=== PATIENT | male | born 1955 | race Caucasian/White ===

== ENCOUNTER 2017-01-06 15:25 | Inpatient (IN) | payer MEDICARE ==
[~2017-01-06] VITALS: Ht 188 cm; Wt 110.9 kg
[~2017-01-06 15:25] MED LIST: ASPIRIN E.C. 8181 MG PO; EXCEDRIN TENSION HA PO; HYZAAR 12.5 MG-1 TAB PO; LEXAPRO20 MG PO; PRILOSEC40 MG PO; REGLAN 10MG10 MG/TAB PO; TOPROL XL100 MG PO; VICODIN 5/5001 UDTAB PO; ZOCOR40 MG PO
[2017-02-20] VITALS (9 sets, daily range): BP systolic 92–163; BP diastolic 52–73; PULSE 65–74; TEMP 97.8–98.2
[2017-02-20] MEDS ORDERED: ZANAFLEX 4MG TAB4 MG PO (10:18)
[2017-02-20] MEDS ORDERED: HYSINGLA40 PO (10:19)
[2017-02-20] MEDS ORDERED: DESYREL 100MG100 MG PO (10:19)
[2017-02-20] MEDS ORDERED: NORCO 325 MG-101 TAB PO (10:20)
[2017-02-20] MEDS ORDERED: NEURONTIN300 MG/CAP PO (10:20)
[2017-02-20] MEDS ORDERED: GLUCOTROL 5M5 MG/TAB PO (10:21)
[2017-02-20] MEDS ORDERED: LEVEMIR FLEX100 U/ML SQ (10:21)
[2017-02-20] MEDS ORDERED: TOPROL XL200 MG PO (10:22)
[2017-02-20] MEDS ORDERED: LIPITOR 40MG TA40 MG PO (10:22)
[2017-02-20] MEDS ORDERED: LOTENSIN HCT 101 TAB PO (10:23)
[2017-02-20] MEDS ORDERED: PLAVIX 75MG TAB75 MG PO (10:40)
--- NOTE | 2017-02-20 10:57 | NUR ---
Pt arrived via wheelchair due to intolerance to walk long distances with personal cane. , Gi, with pt today. Pt is A&O. Did have some difficulty with giving information on current medication he takes. Pt has a bit of a slur with speech but reports he doesnt like to wear his upper and lower dentures and currently does not have them in. VSS-documented. Assessment completed and documented. BG obtained-171. IVF infusing to 18g in right forearm. Left shoulder scrubbed per orders. Glasses in place at this time. and son at bedside. Pt verbalized understanding of surgery and consent obtained. Side rails up. Call light in reach.
--- NOTE | 2017-02-20 14:20 | NUR ---
PATIENT ADMITED INTO ROOM 350 POST OP. PATIENT IS VERY DROWSY POST OP AND CAN'T STAY AWAKE. NOTED LOWER B/P IN THE 90'S SYSTOLIC WITH RESP AT 10-12. ALL OTHER VSS. PATIENT APPEARS TO BE COMFORTABLE. PATIENT HAS HX OF CHRONIC PAIN, MULTIPLE BACK SURGERIES, RECENTLY QUITE SMOKING AND DRINKING REPORTED BY HIM. PATIENT IS A RETIRED CARDIOLOGY NURSE. LTS DRESSING IS CD&I WITH FOAM DRESSING. ABDUCTOR SLING INPLACE TO LUE WITH ICE PACK. SCD'S TO BLE. POSITIVE RADIAL PULSES. PATIENT ON CONTACT FOR HX OF MRSA. NO C/O N/V. IV FLUIDS INFUSING INTO RIGHT FORARM IV VIA PUMP. LIQUIDS AT BEDSIDE. BS IN PACU WAS 129. PATIENT HAS NOT VOIDED POST OP YET AND DENIES NEED AT THIS TIME. HEAD TO TOE ASSESSMENT COMPLETE. FAMILY AT BEDSIDE. CALL LIGHT IN REACH.
--- NOTE | 2017-02-20 17:45 | NUR ---
HUNG FIRST POST OP DOSE OF IV ABX. PATIENT SLEEPING SOUNDLY. VSS. ASLEEP AT BEDSIDE. CALL LIGHT IN REACH.
--- NOTE | 2017-02-20 22:30 | NUR ---
RESUMED CARE OF PATIENT. STILL SLIGHTLY DROWSY BUT MORE AWAKE THAN EARLIER. SCHEDULED TORADOL GIVEN FOR PAIN. PATIENT STATED HE WANTED DILAUDID. TOLD HIM NONE WAS ORDERED AND GAVE NORCO INSTEAD. LEFT SHOULDER HAS ABDUCTOR SLING IN PLACE WITH ICE. ISOLATION PRECAUTIONS FOR HISTORY OF MRSA. 35 UNITS OF INSULIN LEVEMIR WAS GIVEN BEFORE BED, BLOOD SUGAR WAS 163. PATIENT HAS VOIDED, USING URINAL. CALL LIGHT WITHIN REACH. WILL CONTINUE TO MONITOR.
--- NOTE | 2017-02-20 23:17 | NUR ---
REPORT GIVEN TO QAMAR MEDINA, WHO WILL BE TAKING OVER PATIENT'S CARE AT THIS TIME.
[2017-02-21 00:11] VITALS: BP 139/70; PULSE 83; TEMP 98.5
--- NOTE | 2017-02-21 00:30 | NUR ---
RECEIVED REPORT FROM MICHI FOOTE.
--- NOTE | 2017-02-21 01:04 | NUR ---
PT ANGRY. PT RELATED HE ONLY AGREED TO SURGERY IF DR WOULD GIVE HIM DILAUDID. MENTIONS DILAUDID SEVERAL TIMES. PAIN UNRELIEVED WITH NORCO. GAVE MORPHINE 4MG IV. AND ICE PACK. PT SITTING UP IN BED. STATES I HATE ICE PACKS. WANTS TORODOL NOW FOR INFLAMMATION. NOT DUE UNTILL 3AM. AT BEDSIDE. CALL LIGHT IN REACH.
[2017-02-21 04:42] LABS: HEMATOCRIT 34.6 % (42.0-52.0); HEMOGLOBIN 10.7 g/dl (13.5-18.0)
[2017-02-21 05:40] VITALS: BP 96/47; PULSE 74; TEMP 98.4
--- NOTE | 2017-02-21 07:00 | NUR ---
Report received from QAMAR Gray. PT in bed resting, sitting at side of bed, ordering breakfast adn anticipating dishcarge shortly. Will continue to monitor.
--- NOTE | 2017-02-21 08:30 | NUR ---
Discharge teaching completed at this time. Pt received scripts, f/u appointmetn. Discharge packet discussed and answered all questions. Pt received 6 airstrips to put on after 02/28 when aquacel removed. Sling in placed, re-educated on need to keep sling in place at all times. Pt left wtih all belongings, escorted out via wheelchair with surgical staff. to drive home. Criteria met.
== END 2017-02-21 08:50 | disposition home or self-care (01) | DRG 483 ==
LOC: JCC 02-20 07:30 → INPTSU 02-20 09:06 → JCC 02-20 12:15 → SURG 02-20 14:27
PROVIDERS: ADMIT Orthopaedic Surgery
PROC: 0RRK00Z Replacement of Left Shoulder Joint with Reverse Ball and Socket Synthetic Substitute, Open Approach (ICD-10-PCS; principal; 2017-02-20 12:15)
DX: M19.012 Primary osteoarthritis, left shoulder (principal); E11.9 Type 2 diabetes mellitus without complications; Z79.4 Long term (current) use of insulin; I10 Essential (primary) hypertension; I25.10 Atherosclerotic heart disease of native coronary artery without angina pectoris
CPT/HCPCS: A9284; C1713; C1776; J0690; J1170; J1815; J1885; J2250; J2270; J2405; J2704; J2795; J3010; J7030

== ENCOUNTER → 2017-02-07 | Outpatient (CLI) | payer MEDICARE ==
[~2017-02-07] MED LIST changes: +DESYREL 100MG100 MG PO; +GLUCOTROL 5M5 MG/TAB PO; +HYSINGLA40 PO; +LEVEMIR FLEX100 U/ML SQ; +LIPITOR 40MG TA40 MG PO; +LOTENSIN HCT 101 TAB PO; +NEURONTIN300 MG/CAP PO; +NORCO 325 MG-101 TAB PO; +PLAVIX 75MG TAB75 MG PO; +TOPROL XL200 MG PO; +ZANAFLEX 4MG TAB4 MG PO
== END ==
LOC: ZCOL.LAB 15:07
DX: Z01.89 Encounter for other specified special examinations (principal)